=== PATIENT | female | born 1965 | race African-American/Black ===

== ENCOUNTER → 2017-05-12 | Outpatient (CLI) | payer OTHER ==
--- NOTE | 2017-05-13 08:24 | REP ---
Clinical: Lower extremity varicosities. Technique: Bajwa scale and color Doppler evaluation using linear high frequency transducer with reflux evaluation. Findings: Ultrasound examination of the right lower extremity deep venous structures from the common femoral vein to the popliteal vein demonstrates normal compressibility flow and wave patterns in response to respiration and augmentation. There is no evidence for deep venous thrombosis. Further evaluation demonstrates reflux throughout the greater saphenous vein with collateral vessels through the knee extending to subcutaneous varicosities along the mid garcia. Reflux through the lesser saphenous vein is also identified with a large collateral vessel to the mid calf level. Proximal greater saphenous vein measures 5.1 mm diameter with reflux 3.4 seconds duration. Mid greater saphenous vein measures 6.0 mm diameter with reflux 5.1 seconds duration. Distal greater saphenous vein measures 4.7 mm diameter with reflux 4.2 seconds duration. Lesser saphenous vein measures 3.1 mm diameter with reflux 5.1 seconds duration. Impression: 1. No evidence for deep venous thrombosis. 2. Positive examination demonstrating reflux as described above likely amendable to EVLT. Signed by Abran Lloyd MD 05/13/2017 08:16 A
== END ==
LOC: M RAD 11:59 → EDSEX 12:00
PROVIDERS: ATTEND Surgery Vascular Surgery
DX: I83.811 Varicose veins of right lower extremity with pain (principal)

== ENCOUNTER → 2018-04-25 | Outpatient (CLI) | payer OTHER | LOC: M RAD 15:31 | DX: Z12.31 Encounter for screening mammogram for malignant neoplasm of breast (principal) | CPT/HCPCS: 77067 ==